=== PATIENT | male | born 1940 | race Caucasian/White ===

== ENCOUNTER 2018-05-04 15:43 | Inpatient (IN) | END 2018-05-05 13:32 | disposition home or self-care (01) | DRG 313 ==

== ENCOUNTER 2019-01-09 07:24 | Observation (INO) | payer MEDICARE, BC ==
[~2019-01-09] VITALS: Ht 170.2 cm; Wt 72.1 kg
[~2019-01-09 07:24] MED LIST: ASPI-903 PO; CHOL100062 PO; CRES5 PO; DUTA0.5C PO; FURO-110 PO; METO-448 PO; MULT-552 PO; NITR0.4T39 SL; OMEG1CAP2 PO; PANT40TA3 PO; Patient Own Medication NASAL
[2019-01-09] MEDS ORDERED: NITROGLYCERIN 2% 1 GM OINT PKT TD STA (07:27)
--- NOTE | 2019-01-09 07:30 | ERD ---
ER Documentation Chief Complaint Chief Complaint Chest pain HPI Very pleasant 78-year-old gentleman prior history of cardiac disease and stents approximately 10 years ago who presents with 1-2 hours of chest discomfort. He describes it is right parasternal pressure-like radiating to the left shoulder alleviated by aspirin and nitroglycerin provided by EMS. Only mild 1 out of 10 chest pressure at this time. No pleuritic pain cough fevers chills. No nausea vomiting or lower extremity swelling or edema. ROS All systems reviewed and are negative except as per history of present illness. Medications Home Meds Active Scripts Nitroglycerin* (Nitrostat*) 25 Tab Subl, 0.4 MG SL Q5M PRN for CHEST PAIN, #90 TAB 3 dose max Prov:JOHN SHAW 05/05/18 Furosemide* (Lasix*) 20 Mg Tablet, 20 MG PO DAILY for 4 Days, TAB Prov:JENNIFER SCHULTE 11/09/15 Pantoprazole* (Protonix*) 40 Mg Tablet.dr, 40 MG PO BID for 30 Days, TAB Prov:JENNIFER SCHULTE 11/08/15 [Patient Own Medication] 1 EA EA No Conflict Check, 0 EA NASAL BID for 30 Days, EA Prov:JENNIFER SCHULTE 11/08/15 Metoprolol Tartrate* (Lopressor*) 25 Mg Tab, 25 MG PO BID for 30 Days, TAB Prov:JENNIFER SCHULTE 11/08/15 Reported Medications Multivitamins* (Once Daily*) 1 Tab Tablet, 1 TAB PO DAILY, TAB 11/04/15 Cholecalciferol* (Vitamin D3*) 1,000 Unit Tablet, 1000 UNIT PO DAILY, TAB 11/04/15 [place]-3 Acid Ethyl Esters (Lovaza) 1 Gm Capsule, 2 GM PO QAM, CAP 11/04/15 Aspirin* (Aspirin* Chew) 81 Mg Tab.chew, 81 MG PO QAM, TAB.CHEW 11/04/15 Rosuvastatin Calcium* (Crestor*) 5 Mg Tablet, 5 MG PO QAM, #30 TAB 11/04/15 Dutasteride* (Avodart*) 0.5 Mg Capsule, 0.5 MG PO QAM, CAP 11/04/15 Allergies Allergies: Coded Allergies: No Known Allergies (Verified Allergy, Unknown, 05/04/18) PMhx/Soc History of Surgery: Yes (hip replacement) Anesthesia Reaction: No Hx Neurological Disorder: No Hx Respiratory Disorders: Yes (chronic cough) Hx Psychiatric Problems: No Hx Miscellaneous Medical Probl: No Hx Alcohol Use: No Hx Substance Use: No Hx Tobacco Use: No FmHx Family History: coronary disease; No diabetes Physical Exam Vitals Vital Signs Date Temp Pulse Resp B/P (MAP) Pulse Ox O2 O2 Flow FiO2 Time Delivery Rate 01/09/19 62 18 129/72 100 Room Air 08:28 (91) 01/09/19 97.6 74 18 136/81 97 07:29 (99) Physical Exam General: Well developed, well nourished, no acute distress Head: Normocephalic, atraumatic. Eyes: Pupils equally reactive, EOM intact ENT: Moist mucous membranes Neck: Supple, no lymphadenopathy Respiratory: Lungs clear bilaterally, no distress Cardiovascular: RRR, no murmurs, rubs, or gallops Abdominal: Soft, non-tender, non-distended, no peritoneal signs : Deferred MSK: No edema, no unilateral swelling, 5/5 strength Neurologic: Alert and oriented, moving all extremities, normal speech, no focal weakness, no cerebellar signs Skin: No rash Psych: Normal mood Result Diagram: 01/09/19 0800 01/09/19 0800 Results 24 hrs Laboratory Tests Test 01/09/19 08:00 White Blood Count 5.1 10^3/ul Red Blood Count 4.59 10^6/ul Hemoglobin 14.7 g/dl Hematocrit 42.9 % Mean Corpuscular Volume 93.5 fl Mean Corpuscular Hemoglobin 32.0 pg Mean Corpuscular Hemoglobin Concent 34.3 g/dl Red Cell Distribution Width 13.5 % Platelet Count 241 10^3/UL Mean Platelet Volume 10.4 fl Immature Granulocytes % 0.200 % Neutrophils % 64.9 % Lymphocytes % 24.4 % Monocytes % 7.5 % Eosinophils % 2.2 % Basophils % 0.8 % Nucleated Red Blood Cells % 0.0 /100WBC Immature Granulocytes # 0.010 10^3/ul Neutrophils # 3.3 10^3/ul Lymphocytes # 1.2 10^3/ul Monocytes # 0.4 10^3/ul Eosinophils # 0.1 10^3/ul Basophils # 0.0 10^3/ul Nucleated Red Blood Cells # 0.0 10^3/ul Sodium Level 141 mmol/L Potassium Level 4.3 mmol/L Chloride Level 108 mmol/L Carbon Dioxide Level 24 mmol/L Anion Gap 9 Blood Urea Nitrogen 22 mg/dl Creatinine 1.36 mg/dl Est Glomerular Filtrat Rate mL/min mL/min Glucose Level 115 mg/dl Calcium Level 9.1 mg/dl Troponin I < 0.012 ng/ml Current Medications Medications Dose Sig/Jacinda Start Time Status Last (Trade) Ordered Route PRN Stop Time Admin Dose Reason Admin 1 inch ONCE STAT 01/09/19 DC 01/09/19 Nitroglycerin TD 07:27 01/09/19 07:36 07:28 (Nitroglyceri n 2% Oint) Ondansetron 4 mg ER BRIDGE 01/09/19 HCl (Zofran PRN IV 09:00 01/10/19 Inj) NAUSEA/VOMITI 08:59 NG 650 mg ER BRIDGE 01/09/19 Acetaminophen PRN PO 09:00 01/10/19 (Tylenol .MILD PAIN 08:59 Tab) 1-3 OR TEMP Procedures/MDM EKG, MONITORS, & DIAGNOSTIC IMAGING: EKG: I reviewed and interpreted a 12-lead EKG. Rhythm: Normal sinus rhythm ST Changes: No contiguous ST segment elevations T waves: No contiguous T wave inversions Impression: No evidence of acute cardiac ischemia Repeat EKG: EKG: I reviewed and interpreted a 12-lead EKG. Rhythm: Normal sinus rhythm ST Changes: No contiguous ST segment elevations T waves: No contiguous T wave inversions Impression: No evidence of acute cardiac ischemia Chest x-ray: I reviewed and interpreted a 1 view of the chest Mediastinum: No enlargement Cardiac silhouette: No cardiomegaly Airspace: Clear lung gamez bilaterally without evidence of pneumothorax Bones: No evidence of fracture PROCEDURES: None LAB INTERPRETATION: * Negative troponin MEDICAL DECISION MAKING: The patient's history, physical exam and clinical presentation is concerning for possible cardiogenic etiology and acute coronary syndrome. Based on the patient's clinical exam and history and risk factors, I have a much lower clinical concern for pulmonary embolism, acute aortic dissection, pneumothorax, pneumonia, cardiac tamponade HEART Score for Major Cardiac Events from [email or web address] on 01/09/2019 All calculations should be rechecked by clinician prior to use RESULT SUMMARY: 5 points Moderate Score (4-6 points) Risk of MACE of 12-16.6%. Shared Decision Making: We had a conversation regarding risk stratification, MACE rate, and the risks, benefits, alternatives of disposition planning options. Disposition planning: Given risk profile strongly recommend hospitalization, patient agreeable ER COURSE: * Aspirin given prior to arrival. Nitropaste applied. * Chest pain-free. CONSULTATION: None DISPOSITION PLAN: Telemetry admission for management of chest pain to rule out acute coronary syndrome, serial enzymes, risk stratification and consideration of provocative testing CONSULTATION: Accepting care team and consultations: I discussed the current laboratory data, diagnostic imaging and emergency care provided. Admitting team: Dr. Carver Admitting team indication: Insurance directed Departure Diagnosis: Primary Impression: Chest pain Chest pain type: unspecified Qualified Codes: R07.9 - Chest pain, unspecified Additional Impression: Coronary artery disease Coronary Disease-Associated Artery/Lesion type: unspecified vessel or lesion type [place] vs. transplanted heart: [place] heart Associated angina: with unspecified angina Qualified Codes: I25.119 - Atherosclerotic heart disease of [place] coronary artery with unspecified angina pectoris Condition: DANIEL Diaz MD Jan 09, 2019 07:30
[2019-01-09] MEDS ORDERED: ONDANSETRON 4 MG INJ IV PRN ×2 (09:00→13:00)
[2019-01-09] MEDS ORDERED: ACETAMINOPHEN 325 MG TAB PO PRN ×2 (09:00→13:00)
--- NOTE | 2019-01-09 09:36 | CONS ---
Assessment/Plan Assessment/Plan Hospital Course (Demo Recall) chest pain: atypical, r/o for acs with serial neg trop/ekg. obtain echo. cont asa/statin/beta lemuel. prn sln. if pt rules out for acs and no recurrent pain with activity, likely can be d/c home with outpt follow given already has recent negative stress test. htn controlled hld on statin Consultation Date/Type/Reason Admit Date/Time 01/09/2019 Date of Consultation: Jan 09, 2019 Type of Consult Cardiology Reason for Consultation Chest pain Requesting Provider: YESSICA VEGA NP Date/Time of Note DATE: 01/09/19 TIME: 09:30 Hx of Present Illness 89y.o. with h/o htn, lone afib episode, CAD s/p previous PCI 2007. Pt with acute onset chest pain this am. States early this am awoke with L sided mild pressure like, moderate in nature, mid chest, nonradiating, not associated with shortness of breath, palpitations, nausea, vomiting or abdominal issues, had L arm numbness as well. pain was at rest, did not take sln. able to eat breakfast but still with L numbness. , pt called EMS and they gave him asa/nitro with resolution of pain, no recurrence. had recent stress test in 10/2018 as outpt, per Dr. Clifton's report pt exercised for almost 9 mins on mansoor protocol no chest pain, no ischemia on ecg and echo at that time. pt states exercises on treadmill frequently plan to run 5K tomorrow he states no chest pain/sob at home. ROS: Constitutional: no complaints Eyes: no complaints ENT: no complaints Respiratory: no complaints Cardiovascular: chest pain Gastrointestinal: no complaints Genitourinary: no complaints Musculoskeletal: no complaints Skin: no complaints Neurologic: no complaints Endocrine: no complaints Psychological: no complaints, nl mood/affect Immunologic: no complaints Past Medical History NSTEMI and promus 3X15 post.latRCA [id number] distal RCA May 2008,Mild LAD and 60- 70% CIRC trunk lesions Chronic obstructive pulmonary disease (496) (J44.9) Diverticulosis (562.10) (K57.90) Essential hypertension (401.9) (I10) Hyperlipidemia (272.4) (E78.5) Paroxysmal atrial fibrillation (427.31) (I48.0) Atrial FIB for 30 mts during colonoscopy for GI bleed at [facility] NOV 2015never recurred related to anesthesia? No anticoagulants ASA only History of Reflux esophagitis (530.11) (K21.0) Past Surgical History Surgical History History of Cath Stent Placement Number Of Stents Placed: History of Esophagogastric Fundoplasty Laparoscopic History of Hernia Repair History of Laminectomy Lumbar History of Tonsillectomy History of Transurethral Resection Of Prostate (TURP) Family History Significant Family History: other (no cad) Social History Alcohol Use: none Smoking Status: Never smoker Drug Use: none Home Meds Active Scripts Nitroglycerin* (Nitrostat*) 25 Tab Subl, 0.4 MG SL Q5M PRN for CHEST PAIN, #90 TAB 3 dose max Prov:JOHN SHAW 05/05/18 Furosemide* (Lasix*) 20 Mg Tablet, 20 MG PO DAILY for 4 Days, TAB Prov:JENNIFER SCHULTE 11/09/15 Pantoprazole* (Protonix*) 40 Mg Tablet.dr, 40 MG PO BID for 30 Days, TAB Prov:JENNIFER SCHULTE 11/08/15 [Patient Own Medication] 1 EA EA No Conflict Check, 0 EA NASAL BID for 30 Days, EA Prov:JENNIFER SCHULTE 11/08/15 Metoprolol Tartrate* (Lopressor*) 25 Mg Tab, 25 MG PO BID for 30 Days, TAB Prov:JENNIFER SCHULTE 11/08/15 Reported Medications Multivitamins* (Once Daily*) 1 Tab Tablet, 1 TAB PO DAILY, TAB 11/04/15 Cholecalciferol* (Vitamin D3*) 1,000 Unit Tablet, 1000 UNIT PO DAILY, TAB 11/04/15 [place]-3 Acid Ethyl Esters (Lovaza) 1 Gm Capsule, 2 GM PO QAM, CAP 11/04/15 Aspirin* (Aspirin* Chew) 81 Mg Tab.chew, 81 MG PO QAM, TAB.CHEW 11/04/15 Rosuvastatin Calcium* (Crestor*) 5 Mg Tablet, 5 MG PO QAM, #30 TAB 11/04/15 Dutasteride* (Avodart*) 0.5 Mg Capsule, 0.5 MG PO QAM, CAP 11/04/15 Medications Current Medications Ondansetron HCl (Zofran Inj) 4 mg ER BRIDGE PRN IV NAUSEA/VOMITING; Start 4/5/19 at 09:00; Stop 01/10/19 at 08:59 Acetaminophen (Tylenol Tab) 650 mg ER BRIDGE PRN PO .MILD PAIN 1-3 OR TEMP; Start 01/09/19 at 09:00; Stop 01/10/19 at 08:59 Allergies: Coded Allergies: No Known Allergies (Verified Allergy, Unknown, 05/04/18) Social History Smoking Status: Never smoker Exam/Review of Systems Exam Vitals Vital Signs Date Temp Pulse Resp B/P (MAP) Pulse Ox O2 O2 Flow FiO2 Time Delivery Rate 01/09/19 62 18 129/72 100 Room Air 08:28 (91) 01/09/19 97.6 07:29 Exam Constitutional: alert, oriented Psych: no complaints, nl mood/affect Head: normocephalic, atraumatic Eyes: nl conjunctiva, EOMI, nl lids ENMT: nl external ears & nose, nl lips & teeth, nl nasal mucosa & septum Neck: supple, non-tender Respiratory: clear to auscultation, normal air movement Cardiovascular: regular rate and rhythm, nl pulses Gastrointestinal: soft, nl liver, spleen, non-tender Musculoskeletal: nl extremities to inspection, nl gait and stance Extremities: normal pulses Neurological: STATEMENT CLERK II-XII intact, nl mental status, nl speech, nl strength Skin: nl turgor Results Result Diagram: 01/09/19 0800 01/09/19 0800 Results 24hrs Laboratory Tests Test 01/09/19 08:00 White Blood Count 5.1 Red Blood Count 4.59 L Hemoglobin 14.7 Hematocrit 42.9 Mean Corpuscular Volume 93.5 Mean Corpuscular Hemoglobin 32.0 Mean Corpuscular Hemoglobin Concent 34.3 Red Cell Distribution Width 13.5 Platelet Count 241 Mean Platelet Volume 10.4 Immature Granulocytes % 0.200 Neutrophils % 64.9 Lymphocytes % 24.4 Monocytes % 7.5 Eosinophils % 2.2 Basophils % 0.8 Nucleated Red Blood Cells % 0.0 Immature Granulocytes # 0.010 Neutrophils # 3.3 Lymphocytes # 1.2 Monocytes # 0.4 Eosinophils # 0.1 Basophils # 0.0 Nucleated Red Blood Cells # 0.0 Sodium Level 141 Potassium Level 4.3 Chloride Level 108 Carbon Dioxide Level 24 Anion Gap 9 Blood Urea Nitrogen 22 H Creatinine 1.36 H Est Glomerular Filtrat Rate mL/min Glucose Level 115 Calcium Level 9.1 Troponin I < 0.012 Imaging Imaging EKG: NSR no acute abnl cxr report reviewed in emr Medications Medication Current Medications Ondansetron HCl (Zofran Inj) 4 mg ER BRIDGE PRN IV NAUSEA/VOMITING; Start 01/09/19 at 09:00; Stop 01/10/19 at 08:59 Acetaminophen (Tylenol Tab) 650 mg ER BRIDGE PRN PO .MILD PAIN 1-3 OR TEMP; Start 01/09/19 at 09:00; Stop 01/10/19 at 08:59 ISELA SILVA Jan 09, 2019 09:36
[2019-01-09] MEDS ORDERED: METO-448 PO (11:26)
[2019-01-09] MEDS ORDERED: ASPI-817 PO (11:27)
[2019-01-09] MEDS ORDERED: PANT40TA4 PO (11:27)
[2019-01-09] MEDS ORDERED: DUTA0.5C PO (11:32)
[2019-01-09] MEDS ORDERED: CHOL100062 PO (11:32)
[2019-01-09] MEDS ORDERED: MULTI PO (11:33)
[2019-01-09] MEDS ORDERED: CRES5 PO (11:33)
[2019-01-09] MEDS ORDERED: morphine 2 MG INJ IV PRN (13:00)
[2019-01-09] MEDS ORDERED: NACL 0.9% 3 ML SYG IV SCH (13:00)
[2019-01-09 13:29] VITALS: BP 126/69; PULSE 64; RESP 19
--- NOTE | 2019-01-09 13:51 | HP ---
Date/Time of Note Date/Time of Note DATE: 01/09/19 TIME: 13:27 Assessment/Plan VTE Prophylaxis SCD applied (from Nsg): Yes Pharmacological prophylaxis: heparin Lines/Catheters IV Catheter Type (from Nrsg): [place] Assessment/Plan Hospital Course SUBJECTIVE: Seen and evaluated patient in ER room 13. No acute distress. OBJECTIVE: Vital signs-see below PHYSICAL EXAM: Constitutional: Well-developed, well-nourished, not in acute distress. Psych: Normal mentation, no suicidal thoughts, no hallucination. Head: atraumatic, normocephalic Eyes: nl conjunctiva, nl sclera ENMT: mucosa pink and moist, nl external ears & nose Neck: non-tender, supple Respiratory: clear to auscultation, normal air movement Cardiovascular: nl pulses, regular rate and rhythm Gastrointestinal: non-tender, soft, bowel sounds active in all 4 quadrants. Musculoskeletal/extremities:Cyanotic bilateral feet. Motor strength 5 out of 5 in all 4 extremities. No focal defecit. Neurological: Alert oriented x4. Normal speech. Skin: nl turgor Assessment/plan: 78-year-old male with hypertension, dyslipidemia, GERD, BPH, CAD/PCI with stent x2 in 2007, with right-sided chest pain with radiation to left shoulder, left arm numbness. 1. Chest pain, rule out acute coronary syndrome. -Obtain serial troponin, repeat EKG. Patient had a recent stress test in October 2018, negative for reversible ischemia. -We will consult flute grinder -Aspirin prophylaxis -PRN nitro, morphine for pain control. 2. Questionable Circulatory insufficiencies affecting bilateral lower extremities/feet -Patient with cyanotic bilateral feet. Obtain a complete arterial ultrasound of bilateral lower extremities and consider vascular evaluation if indicated. --Continue to optimize neurovascular status with antihypertensives to keep blood pressure ~140/90, diet, nutrition, exercise, blood glucose control, and antiplatelets/anticoagulation. 3. Acute kidney injury versus CKD. -Obtain renal ultrasound and consider nephrology follow-up if indicated. -Monitor renal function closely and avoid nephrotoxins. 4. Essential hypertension. -Stable. Resume home antihypertensives. 5. Dyslipidemia. -Resume statin. Obtain a.m. lipid panel. 6. BPH. -Resume Avodart. DVT prophylaxis: Heparin PUD prophylaxis: PPI CODE STATUS: Full code Diet: Low-cholesterol/low-fat diet. Rest of the management depend on hospital course. Approximately 60 minutes was spent on this history and physical. Patient is seen in collaboration with Dr. Carver. Result Diagram: 01/09/19 0800 01/09/19 0800 Results 24hrs Laboratory Tests Test 01/09/19 08:00 White Blood Count 5.1 Red Blood Count 4.59 L Hemoglobin 14.7 Hematocrit 42.9 Mean Corpuscular Volume 93.5 Mean Corpuscular Hemoglobin 32.0 Mean Corpuscular Hemoglobin Concent 34.3 Red Cell Distribution Width 13.5 Platelet Count 241 Mean Platelet Volume 10.4 Immature Granulocytes % 0.200 Neutrophils % 64.9 Lymphocytes % 24.4 Monocytes % 7.5 Eosinophils % 2.2 Basophils % 0.8 Nucleated Red Blood Cells % 0.0 Immature Granulocytes # 0.010 Neutrophils # 3.3 Lymphocytes # 1.2 Monocytes # 0.4 Eosinophils # 0.1 Basophils # 0.0 Nucleated Red Blood Cells # 0.0 Sodium Level 141 Potassium Level 4.3 Chloride Level 108 Carbon Dioxide Level 24 Anion Gap 9 Blood Urea Nitrogen 22 H Creatinine 1.36 H Est Glomerular Filtrat Rate mL/min Glucose Level 115 Calcium Level 9.1 Troponin I < 0.012 HPI/ROS Admit Date/Time Admit Date/Time 01/09/2019 Hx of Present Illness This is a 78-year-old male with a history of hypertension, vitamin D deficiency, GERD, dyslipidemia, BPH, was brought in by paramedics to ER with sudden onset of right-sided chest pain with radiation to left shoulder associated with left arm numbness, started this morning when he woke up from bed. Patient was given aspirin and sublingual nitroglycerin by paramedics and his pain resolved after that. Patient denies shortness of breath, palpitation, nausea, vomiting, diaphoresis, loss of consciousness, dizziness, speech difficulties, vision changes, diarrhea, fever, chills or other constitutional symptoms. Patient is Dr. Clifton's patient as outpatient and had a negative stress test in October 2018. In the emergency room, initial labs unremarkable except for BUN 22, creatinine 1.36. Chest x-ray negative for any acute cardiopulmonary disease. Patient had stable vital signs in the emergency room. EKG was negative for acute ST or T wave changes. Patient was already given aspirin in route. He was given nitro patch in the emergency room. ROS A 12 point review of system was assessed and is negative other than what is mentioned in HPI. PMH/Family/Social Past Medical History See HPI Medications Current Medications Ondansetron HCl (Zofran Inj) 4 mg ER BRIDGE PRN IV NAUSEA/VOMITING; Start 01/09/19 at 09:00; Stop 01/10/19 at 08:59 Acetaminophen (Tylenol Tab) 650 mg ER BRIDGE PRN PO .MILD PAIN 1-3 OR TEMP; Start 01/09/19 at 09:00; Stop 01/10/19 at 08:59 Coded Allergies: No Known Allergies (Verified Allergy, Unknown, 01/09/19) Past Surgical History see HPI Family History Significant Family History: other Social History Denied history of alcohol, smoking or illicit drug use. Smoking Status: Never smoker Exam/Review of Systems Vital Signs Vitals Vital Signs Date Temp Pulse Resp B/P (MAP) Pulse Ox O2 O2 Flow FiO2 Time Delivery Rate 01/09/19 112 17 112/72 100 Room Air 10:56 (85) 01/09/19 97.6 07:29 YESSICA VEGA NP Jan 09, 2019 13:38
[2019-01-09 15:01] VITALS: Ht 170.2 cm; Wt 72.1 kg
[2019-01-09 15:45] VITALS: BP 133/65; PULSE 62; RESP 19
[2019-01-09 16:00] VITALS: PULSE 66
[2019-01-09 20:00] VITALS: BP 152/79; PULSE 68; PULSE 71; RESP 18
[2019-01-09] MEDS: METOPROLOL 25 MG TAB PO SCH (20:14)
[2019-01-09] MEDS ORDERED: HEPARIN 5,000 UNIT/1 ML VIAL SC SCH (21:00)
[2019-01-09] MEDS ORDERED: ATORVASTATIN 80 MG TAB PO SCH (21:00)
[2019-01-10] VITALS: BP 127/74; PULSE 62; PULSE 64; RESP 18
[2019-01-10 04:00] VITALS: BP 119/77; PULSE 60; PULSE 66; RESP 18
[2019-01-10] MEDS ORDERED: PANTOPRAZOLE (EC) 40 MG TAB PO SCH (07:00)
--- NOTE | 2019-01-10 07:15 | RADRPT ---
Echocardiogram Report Patient Name: VERITO OSEGUREAPatient ID: [id number] : 1940 (78y 2m)Study Date: 01/09/2019 1:30:04 PM Gender: MAccession #: [id number] Tech: Richard Francis [facility] Location: [id number] Ref.Physician: KOLE SILVA Height(Cm): BSA: Weight(Kg): Quality: AdequateAccount #: Procedures: Echocardiographic Report: Transthoracic echocardiogram with complete 2D, M-Mode, and doppler examination. Indications: Chest Pain. Measurements: 2D/M Mode Doppler Measurement Value Normal Range Measurement Value Normal Range LVIDd 2D 3.5 [ 4.2 - 5.8 ] cm AV Peak Samy 1.2 [ 100.0 - 170.0 ] cm/sec LVIDs 2D 2.3 [ 2.5 - 4.0 ] cm AV Peak PG 5.0 [ 2.0 - 9.0 ] mmHg LVPWd 2D 1.1 [ 0.6 - 1.0 ] cm LVOT Peak Samy 1.0 [ 70.0 - 110.0 ] cm/sec IVSd 2D 1.1 [ 0.6 - 1.0 ] cm LVOT Peak PG 4.0 [ 2.0 - 6.0 ] mmHg AoR Diam 2D 2.5 [ 2.6 - 3.4 ] cm MV E Peak Samy 0.6 [ 60.0 - 130.0 ] cm/sec EDV 2D 51.6 [ 62.0 - 150.0 ] ml MV A Peak Samy 0.7 [ 100.0 - 120.0 ] cm/sec ESV 2D 19.1 [ 21.0 - 61.0 ] ml MV E/A 0.8 [ 0.8 - 1.5 ] ratio EF 2D 63.0 [ 52.0 - 72.0 ] percent MV Decel Time 250 [ 104 - 258 ] msec LA Dimen 2D 4.3 [ 3.0 - 4.0 ] cm Lat E` Samy 0.1 [ 10.0 - 15.0 ] cm/sec Lateral E/E` 5.7 [ 1.0 - 2.0 ] ratio MV E/A 0.8 [ 0.8 - 1.5 ] ratio TR Peak Samy 2.2 [ 100.0 - 280.0 ] cm/sec TR Peak PG 20.0 mmHg RVSP 23.0 [ 10.0 - 36.0 ] mmHg Findings: Left Ventricle: Normal left ventricular systolic function. Normal left ventricular cavity size. Left ventricular wall thickness upper limits of normal. Ejection fraction is visually estimated at 65 %. Tissue Doppler/Mitral Doppler indices are consistent with impaired relaxation (Stage I diastolic dysfunction). Right Ventricle: Normal right ventricular size. Normal right ventricular systolic function. Left Atrium: There is mild enlargement of left atrium. Right Atrium: The right atrium is normal in size. Mitral Valve: Mild mitral leaflet calcification. Mild mitral annular calcification. Trace mitral regurgitation. Aortic Valve: No hemodynamically significant aortic stenosis by doppler. Aortic cusps appear mildly calcified. Tricuspid Valve: Normal appearance of the tricuspid valve. Estimated peak PA systolic pressure 23 mmHg. There is trace tricuspid regurgitation. Pulmonic Valve: Normal pulmonic valve appearance. Pericardium: Normal pericardium with no significant pericardial effusion. Aorta: Normal aortic root. IVC: Normal size and normal respiratory collapse consistent with normal right atrial pressure. Conclusions: Normal left ventricular systolic function. Normal left ventricular cavity size. Left ventricular wall thickness upper limits of normal. Ejection fraction is visually estimated at 65 %. Tissue Doppler/Mitral Doppler indices are consistent with impaired relaxation (Stage I diastolic dysfunction). Normal right ventricular size. Normal right ventricular systolic function. There is mild enlargement of left atrium. Normal appearance of the tricuspid valve. Estimated peak PA systolic pressure 23 mmHg. There is trace tricuspid regurgitation. Normal pericardium with no significant pericardial effusion. Normal size and normal respiratory collapse consistent with normal right atrial pressure. No Vegetation, masses, or thrombi seen. Electronically Signed By: Kole Silva 2019-01-10 07:14:41 PDT
[2019-01-10 07:33] VITALS: BP 131/65; PULSE 88; RESP 19
[2019-01-10 08:01] VITALS: PULSE 86
[2019-01-10] MEDS ORDERED: CHOLECALCIFEROL 1,000 UNIT TAB PO SCH (09:00)
[2019-01-10] MEDS ORDERED: ASPIRIN (EC) 81 MG TAB PO SCH (09:00)
[2019-01-10] MEDS ORDERED: MULTIVITAMINS THERAPEUTIC TAB PO SCH (09:00)
[2019-01-10] MEDS ORDERED: DUTASTERIDE 0.5 MG CAP PO SCH (09:00)
[2019-01-10] MEDS ORDERED: ENOXAPARIN 40 MG/0.4 ML SYG SC SCH (09:00)
[2019-01-10] MEDS: METOPROLOL 25 MG TAB PO SCH (09:27)
--- NOTE | 2019-01-10 16:36 | DS ---
Date/Time of Note Date/Time of Note DATE: 01/10/19 TIME: 16:35 Discharge Summary Admission/Discharge Info Admit Date/Time Jan 09, 2019 at 08:56 Discharge Date/Time Jan 10, 2019 at 11:10 Discharge Diagnosis Chest pain Patient Condition: Stable Hospital Course Rule out for ACS wtih negative biomarkers and EKG. Clear by cardiology. He requested discharge prior to my evalaution Home Meds Reported Medications Rosuvastatin Calcium* (Crestor*) 5 Mg Tablet, 5 MG PO QHS, #30 TAB 01/09/19 Multivitamins* (Theragran*) 1 Tab Tab, 1 TAB PO DAILY, TAB 01/09/19 Dutasteride* (Avodart*) 0.5 Mg Capsule, 0.5 MG PO DAILY, CAP 01/09/19 Cholecalciferol* (Vitamin D3*) 1,000 Unit Tablet, 1000 UNIT PO DAILY, TAB 01/09/19 Aspirin* (Aspirin* EC) 81 Mg Tablet.dr, 81 MG PO DAILY, TAB 01/09/19 Pantoprazole* (Pantoprazole*) 40 Mg Tablet.dr, 40 MG PO AC BREAKFAST, TAB 01/09/19 Metoprolol Tartrate* (Lopressor*) 25 Mg Tab, 12.5 MG PO BID, #60 TAB 01/09/19 Discontinued Reported Medications Multivitamins* (Once Daily*) 1 Tab Tablet, 1 TAB PO DAILY, TAB 11/04/15 Cholecalciferol* (Vitamin D3*) 1,000 Unit Tablet, 1000 UNIT PO DAILY, TAB 11/04/15 [place]-3 Acid Ethyl Esters (Lovaza) 1 Gm Capsule, 2 GM PO QAM, CAP 11/04/15 Aspirin* (Aspirin* Chew) 81 Mg Tab.chew, 81 MG PO QAM, TAB.CHEW 11/04/15 Rosuvastatin Calcium* (Crestor*) 5 Mg Tablet, 5 MG PO QAM, #30 TAB 11/04/15 Dutasteride* (Avodart*) 0.5 Mg Capsule, 0.5 MG PO QAM, CAP 11/04/15 Discontinued Scripts Nitroglycerin* (Nitrostat*) 25 Tab Subl, 0.4 MG SL Q5M PRN for CHEST PAIN, #90 TAB 3 dose max Prov:JOHN SHAW 05/05/18 Furosemide* (Lasix*) 20 Mg Tablet, 20 MG PO DAILY for 4 Days, TAB Prov:REGANGELRJENNIFER 11/09/15 Pantoprazole* (Protonix*) 40 Mg Tablet.dr, 40 MG PO BID for 30 Days, TAB Prov:REGIDORJENNIFER 11/08/15 [Patient Own Medication] 1 EA EA No Conflict Check, 0 EA NASAL BID for 30 Days, EA Prov:REGIDORJENNIFER 11/08/15 Metoprolol Tartrate* (Lopressor*) 25 Mg Tab, 25 MG PO BID for 30 Days, TAB Prov:REGIDORJENNIFER 11/08/15 Primary Care Provider Not On Staff Doctor Pending Labs Laboratory Tests Test 01/09/19 19:10 01/10/19 05:16 Creatine Kinase 72 IU/L (23-200) Creatine Kinase Index 1.5 Creatinine Kinase MB 1.08 ng/ml (0.0-2.4) (Mass) Troponin I < 0.012 ng/ml (0.000-0.120) White Blood Count 6.2 10^3/ul (4.8-10.8) Red Blood Count 4.56 10^6/ul (4.70-6.10) Hemoglobin 14.5 g/dl (14.0-18.0) Hematocrit 42.8 % (42.0-52.0) Mean Corpuscular Volume 93.9 fl (82.0-101.0) Mean Corpuscular 31.8 pg (29.0-33.0) Hemoglobin Mean Corpuscular 33.9 g/dl (32.0-37.0) Hemoglobin Concent Red Cell Distribution 13.7 % (11.5-14.5) Width Platelet Count 248 10^3/UL (140-415) Mean Platelet Volume 10.6 fl (7.4-10.4) Immature Granulocytes % 0.300 % (0.001-0.429) Neutrophils % 57.1 % (39.0-77.0) Lymphocytes % 28.9 % (15.0-51.0) Monocytes % 9.5 % (0.0-11.0) Eosinophils % 3.2 % (0.0-7.0) Basophils % 1.0 % (0.0-2.0) Nucleated Red Blood Cells 0.0 /100WBC (0.0-0.0) % Immature Granulocytes # 0.020 10^3/ul (0.0-0.031) Neutrophils # 3.6 10^3/ul (1.6-7.5) Lymphocytes # 1.8 10^3/ul (0.8-2.9) Monocytes # 0.6 10^3/ul (0.3-0.9) Eosinophils # 0.2 10^3/ul (0.0-0.5) Basophils # 0.1 10^3/ul (0.0-0.1) Nucleated Red Blood Cells 0.0 10^3/ul (0.0-0.0) # Sodium Level 142 mmol/L (135-144) Potassium Level 4.3 mmol/L (3.5-5.1) Chloride Level 108 mmol/L (97-110) Carbon Dioxide Level 26 mmol/L (21-31) Anion Gap 8 (5-13) Blood Urea Nitrogen 22 mg/dl (7-20) Creatinine 1.46 mg/dl (0.61-1.24) Est Glomerular Filtrat mL/min (>60) Rate mL/min Glucose Level 88 mg/dl (70-220) Hemoglobin A1c 5.7 % (0-5.9) Calcium Level 8.8 mg/dl (8.4-10.2) Phosphorus Level 4.1 mg/dl (2.5-4.9) Magnesium Level 2.0 mg/dl (1.7-2.5) Total Bilirubin 0.6 mg/dl (0.2-1.3) Direct Bilirubin 0.00 mg/dl (0.00-0.20) Indirect Bilirubin 0.6 mg/dl (0-1.1) Aspartate Amino 23 IU/L (15-46) Transf (AST/SGOT) Alanine 17 IU/L (13-69) Aminotransferase (ALT/SGPT ) Alkaline Phosphatase 61 IU/L (42-121) Total Protein 6.9 g/dl (6.1-8.1) Albumin 3.5 g/dl (3.3-4.9) Globulin 3.40 g/dl (1.3-3.2) Albumin/Globulin Ratio 1.02 Triglycerides Level 121 mg/dl (0-149) Cholesterol Level 122 mg/dl (100-200) LDL Cholesterol, 60 mg/dl Calculated HDL Cholesterol 38 mg/dl (31-75) Cholesterol/HDL Ratio 3.2 RATIO Thyroid Stimulating 6.650 MIU/L (0.465-4.680) Hormone (TSH) CLEOPATRA DIAMOND MD Jan 10, 2019 16:36
--- NOTE | 2019-01-15 13:09 | RADRPT ---
Vent Rate: 67 bpm RR Interval: 900 msec CA Interval: 137 msec QRS Duration: 99 msec QT Interval: 410 msec QTC Interval: 432 msec P-R-T [place]: 42 - 2 - 36 degrees Sinus rhythm...normal P axis, V-rate 50- 99 Abnormal R-wave progression, early transition...QRS area>0 in V2 Electronically Signed By: Kole Quijano
== END 2019-01-10 11:10 | disposition home or self-care (01) ==
LOC: E/R 07:24 → 6WM 08:56
PROVIDERS: ADMIT Family Medicine; ATTEND Family Medicine
DX: R07.89 Other chest pain (principal); I10 Essential (primary) hypertension; E78.5 Hyperlipidemia, unspecified; N40.0 Benign prostatic hyperplasia without lower urinary tract symptoms; Z79.82 Long term (current) use of aspirin
CPT/HCPCS: 36415; 71045; 76775; 80048; 80053; 80061; 82550; 82553; 83036; 83735; 84100; 84443; 84484; 85025; 93005; 93306; 93922; 93970; 99285; G0378; J1644

== ENCOUNTER 2019-01-13 04:14 | Emergency (ER) | payer MEDICARE, BC ==
[~2019-01-13] VITALS: Ht 175.3 cm; Wt 71.6 kg
[~2019-01-13 04:14] MED LIST changes: +ASPI-817 PO; -ASPI-903 PO; -FURO-110 PO; -MULT-552 PO; +MULTI PO; -NITR0.4T39 SL; -OMEG1CAP2 PO; -PANT40TA3 PO; +PANT40TA4 PO; -Patient Own Medication NASAL
[2019-01-13 04:17] VITALS: Ht 175.3 cm; Wt 71.6 kg
[2019-01-13] MEDS ORDERED: SOD CHLORIDE 0.9% 500 ML IV STA (04:46)
[2019-01-13] MEDS ORDERED: ONDANSETRON 4 MG INJ IV STA (04:46)
--- NOTE | 2019-01-13 05:30 | ERD ---
ER Documentation Chief Complaint Chief Complaint BIB RA 889 c/o left side head pressure +dizziness/vertigo. see note HPI This is a 70-year-old ROS All systems reviewed and are negative except as per history of present illness. Medications Home Meds Reported Medications Rosuvastatin Calcium* (Crestor*) 5 Mg Tablet, 5 MG PO QHS, #30 TAB 01/09/19 Multivitamins* (Theragran*) 1 Tab Tab, 1 TAB PO DAILY, TAB 01/09/19 Dutasteride* (Avodart*) 0.5 Mg Capsule, 0.5 MG PO DAILY, CAP 01/09/19 Cholecalciferol* (Vitamin D3*) 1,000 Unit Tablet, 1000 UNIT PO DAILY, TAB 01/09/19 Aspirin* (Aspirin* EC) 81 Mg Tablet.dr, 81 MG PO DAILY, TAB 01/09/19 Pantoprazole* (Pantoprazole*) 40 Mg Tablet.dr, 40 MG PO AC BREAKFAST, TAB 01/09/19 Metoprolol Tartrate* (Lopressor*) 25 Mg Tab, 12.5 MG PO BID, #60 TAB 01/09/19 Discontinued Reported Medications Multivitamins* (Once Daily*) 1 Tab Tablet, 1 TAB PO DAILY, TAB 11/04/15 Cholecalciferol* (Vitamin D3*) 1,000 Unit Tablet, 1000 UNIT PO DAILY, TAB 11/04/15 [place]-3 Acid Ethyl Esters (Lovaza) 1 Gm Capsule, 2 GM PO QAM, CAP 11/04/15 Aspirin* (Aspirin* Chew) 81 Mg Tab.chew, 81 MG PO QAM, TAB.CHEW 11/04/15 Rosuvastatin Calcium* (Crestor*) 5 Mg Tablet, 5 MG PO QAM, #30 TAB 11/04/15 Dutasteride* (Avodart*) 0.5 Mg Capsule, 0.5 MG PO QAM, CAP 11/04/15 Discontinued Scripts Nitroglycerin* (Nitrostat*) 25 Tab Subl, 0.4 MG SL Q5M PRN for CHEST PAIN, #90 TAB 3 dose max Prov:JOHN SHAW 05/05/18 Furosemide* (Lasix*) 20 Mg Tablet, 20 MG PO DAILY for 4 Days, TAB Prov:JENNIFER SCHULTE 11/09/15 Pantoprazole* (Protonix*) 40 Mg Tablet.dr, 40 MG PO BID for 30 Days, TAB Prov:JENNIFER SCHULTE 11/08/15 [Patient Own Medication] 1 EA EA No Conflict Check, 0 EA NASAL BID for 30 Days, EA Prov:REGIDORJENNIFER 11/08/15 Metoprolol Tartrate* (Lopressor*) 25 Mg Tab, 25 MG PO BID for 30 Days, TAB Prov:REGIDORJENNIFER 11/08/15 Allergies Allergies: Coded Allergies: No Known Allergies (Verified Allergy, Unknown, 01/09/19) PMhx/Soc History of Surgery: Yes Anesthesia Reaction: No Hx Neurological Disorder: No Hx Respiratory Disorders: Yes (Chronic cough) Hx Cardiac Disorders: Yes (CAD, Stents) Hx Psychiatric Problems: No Hx Miscellaneous Medical Probl: No Hx Alcohol Use: Yes Hx Substance Use: No Hx Tobacco Use: No Physical Exam Vitals Vital Signs Date Temp Pulse Resp B/P (MAP) Pulse Ox O2 O2 Flow FiO2 Time Delivery Rate 01/13/19 97.8 71 20 149/67 99 04:17 (94) Physical Exam Const: No acute distress Head: Atraumatic Eyes: Normal Conjunctiva ENT: Normal External Ears, Nose and Mouth. Neck: Full range of motion. No meningismus. Resp: Clear to auscultation bilaterally Cardio: Regular rate and rhythm, no murmurs Abd: Soft, non tender, non distended. Normal bowel sounds Skin: No petechiae or rashes Back: No midline or flank tenderness Ext: No cyanosis, or edema Neur: Awake and alert Psych: Normal Mood and Affect Results 24 hrs Current Medications Medications Dose Sig/Jacinda Start Time Status Last (Trade) Ordered Route PRN Stop Time Admin Dose Reason Admin Sodium 500 ml @ Q1H STAT 01/13/19 01/13/19 Chloride 500 mls/hr IV 04:46 01/13/19 05:03 05:45 Ondansetron 4 mg ONCE STAT 01/13/19 DC 01/13/19 HCl (Zofran IV 04:46 01/13/19 05:02 Inj) 04:47 Procedures/MDM EKG: Rate/Rhythm: [Normal Sinus Rhythm] QRS, ST, T-waves: [No changes consistent w/ acute ischemia] Impression: [No evidence of ischemia or arrhythmia] Chest X-ray 1V Interpreted by me: Soft Tissue: No acute abnormalities Bones: No acute abnormalities Mediastinum/Cardiac Silhouette/Lungs: [No acute abnormalities] Medical decision making: Patient's neurologic symptoms have stabilized while they have been evaluated in the department and are appropriate for outpatient work up. No e/o meningitis, intracranial bleed, seizure, stroke. Departure Diagnosis: Primary Impression: Dizziness Condition: Stable MARTIN BLANCO Jan 13, 2019 05:30
[2019-01-13] MEDS ORDERED: MECL12.574 PO (05:32)
[2019-01-13] MEDS ORDERED: MECLIZINE 12.5 MG TAB PO ONE (06:00)
[2019-01-13 06:30] VITALS: BP 138/79; PULSE 63; RESP 18
== END 2019-01-13 06:56 | disposition home or self-care (01) ==
LOC: E/R 04:14
DX: R42 Dizziness and giddiness (principal); I25.10 Atherosclerotic heart disease of native coronary artery without angina pectoris; R40.2142 Coma scale, eyes open, spontaneous, at arrival to emergency department; R40.2252 Coma scale, best verbal response, oriented, at arrival to emergency department; R40.2362 Coma scale, best motor response, obeys commands, at arrival to emergency department; R07.9 Chest pain, unspecified; Z98.61 Coronary angioplasty status; Z79.82 Long term (current) use of aspirin
CPT/HCPCS: 36415; 70450; 71045; 80048; 84484; 85025; 85610; 85730; 93005; 96374; 99285; J2405; J7040